=== PATIENT | male | born 1980 | race Hispanic/Latino ===

== ENCOUNTER 2017-09-16 12:37 | Emergency (ER) | payer OTHER ==
[2017-09-16] MEDS ORDERED: ASPIRIN 325 MG TABLET ONE (13:04)
[2017-09-16 13:33] LABS: CREATININE 0.8 mg/dL (0.5-1.5); POTASSIUM 3.5 mmol/L (3.5-5.1)
[2017-09-16 13:41] LABS: ALBUMIN 4.2 g/dL (3.5-5.0); BILIRUBIN,TOTAL 2.4 mg/dL (0.2-1.0); TOTAL PROTEIN, SERUM 8.8 g/dL (6.0-8.3)
[2017-09-16 13:47] LABS: INR 1.05 (0.85-1.15); PARTIAL THROMBOPLASTIN TIME 22.6 SEC (26.3-35.5)
[2017-09-16 13:49] LABS: BASOPHILS % (AUTO) 0.9 % (0.0-5.0); EOSINOPHILS % (AUTO) 0.1 % (0.0-8.0); HEMATOCRIT 38.6 % (42-54); LYMPHOCYTES % (AUTO) 23.1 % (21.0-51.0); MEAN CORPUSCULAR HEMOGLOBIN 30.5 pg (27.0-33.0); MEAN CORPUSCULAR HGB CONC 34.2 g/dL (32.0-36.0); MEAN CORPUSCULAR VOLUME 89.3 fL (79-99); MONOCYTES % (AUTO) 8.1 % (3.0-13.0); NEUTROPHILS % (AUTO) 67.8 % (40.0-77.0); PLATELET COUNT (AUTO) 264 K/uL (130-400); RED BLOOD CELL COUNT(AUTO) 4.32 MIL/uL (4.50-6.20); RED CELL DISTRIBUTION WIDTH 13.5 % (11.0-15.5); WHITE BLOOD COUNT (AUTO) 8.6 K/uL (4.8-10.8)
== END 2017-09-16 17:12 | disposition home or self-care (01) ==
LOC: EDH 12:37
DX: R07.89 Other chest pain (principal); E66.9 Obesity, unspecified; Z68.43 Body mass index [BMI] 50.0-59.9, adult
CPT/HCPCS: 36415; 71045; 76705; 80053; 82550; 84484; 85025; 85378; 85610; 85730; 93005

== ENCOUNTER 2023-01-13 17:21 | Emergency (ER) | payer OTHER ==
[~2023-01-13] VITALS: Ht 185.4 cm; Wt 222.3 kg
[2023-01-13 18:48] LABS: APPEARANCE,URINE TURBID (CLEAR); BILIRUBIN,URINE NEGATIVE (NEGATIVE); COLOR,URINE DARK-YELLOW (YELLOW); GLUCOSE, URINE (UA) NEGATIVE (NEGATIVE); KETONES,URINE NEGATIVE (NEGATIVE); LEUKOCYTE ESTERASE ,URINE 500 Leu/uL (NEGATIVE); NITRATE,URINE 1+ (NEGATIVE); OCCULT BLOOD,URINE LARGE (NEGATIVE); PROTEIN,URINE 200 mg/dL (NEGATIVE)
[2023-01-13 18:53] LABS: ADD UA MICROSCOPIC YES
[2023-01-13 18:59] LABS: BACTERIA,URINE FEW /HPF (None Seen); MUCUS,URINE RARE LPF (None Seen); RBC,URINE 26-50 /HPF (0-1); SQUAMOUS EPITHELIAL CELL,UR RARE /HPF (0-2); UNCLASSIFIED CRYSTAL 2 /HPF (None Seen); WBC CLUMP FEW /HPF (0-1); WBC,URINE >100 /HPF (0-1); YEAST,URINE BUDDING RARE /HPF (None Seen)
[2023-01-13 20:00] LABS: BASOPHILS # (AUTO) 0.04 K/uL (0.00-0.20); BASOPHILS % (AUTO) 0.5 % (0.0-5.0); EOSINOPHILS % (AUTO) 1.1 % (0.0-8.0); HEMATOCRIT 44.7 % (42-54); IMMATURE GRANULOCYTE ABSOLUTE 0.05 K/uL (0-1); LYMPHOCYTES # (AUTO) 1.6 K/uL (1.0-4.8); LYMPHOCYTES % (AUTO) 18.8 % (21.0-51.0); MEAN CORPUSCULAR HEMOGLOBIN 30.3 pg (27.0-33.0); MEAN CORPUSCULAR HGB CONC 32.4 g/dL (32.0-36.0); MEAN CORPUSCULAR VOLUME 93.3 fL (79-99); MONOCYTES # (AUTO) 0.6 K/uL (0.1-1.0); NEUTROPHILS # (AUTO) 6.3 K/uL (1.8-7.7); PLATELET COUNT (AUTO) 273 K/uL (130-400); RED BLOOD CELL COUNT(AUTO) 4.79 MIL/uL (4.50-6.20); RED CELL DISTRIBUTION WIDTH 12.9 % (11.0-15.5); WHITE BLOOD COUNT (AUTO) 8.7 K/uL (4.8-10.8)
[2023-01-13 20:14] LABS: CREATININE 0.8 mg/dL (0.5-1.5)
[2023-01-13 20:18] LABS: ALBUMIN 3.5 g/dL (3.5-5.0); TOTAL PROTEIN, SERUM 8.8 g/dL (6.0-8.3)
[2023-01-13] MEDS ORDERED: CEFTRIAXONE 1G VIAL IM ONE (20:30)
[2023-01-13] MEDS ORDERED: PHENAZOPYRIDINE HCL 200 MG TABLET PO ONE (20:30)
[2023-01-13] MEDS ORDERED: MACR100 PO (20:39)
[2023-01-13] MEDS ORDERED: PHEN-847 PO (20:39)
[2023-01-13 20:50] VITALS: BP 172/87; PULSE 88; RESP 18; O2SAT 97
== END 2023-01-13 20:53 | disposition home or self-care (01) ==
LOC: EDH 17:21
DX: N30.91 Cystitis, unspecified with hematuria (principal); R03.0 Elevated blood-pressure reading, without diagnosis of hypertension; E78.00 Pure hypercholesterolemia, unspecified; E66.01 Morbid (severe) obesity due to excess calories; Z68.44 Body mass index [BMI] 60.0-69.9, adult
CPT/HCPCS: 99283; 80053; 85025; 87077; 87088; 87186; 81001; 36415; 96372; J0696

== ENCOUNTER 2024-11-24 21:57 | Emergency (ER) | payer OTHER ==
[~2024-11-24] VITALS: Ht 185.4 cm; Wt 226.8 kg
[~2024-11-24 21:57] MED LIST: MACR100 PO; PHEN-847 PO
[2024-11-24] MEDS ORDERED: IBUP-2077 PO (22:17)
[2024-11-24] MEDS ORDERED: CIPOTIC OTIC (22:17)
--- NOTE | 2024-11-24 22:18 | ERN ---
ED Note History of Present Illness Stated Complaint: RT EAR PAIN Chief Complaint: Earache Time Seen by MD: 22:08 Dictation: PATIENT IS A 44-YEAR-OLD MALE COMING IN TODAY WITH LEFT EAR PAIN MUFFLED HEARING AND USING Q-TIPS FOR THE LAST 3-4 DAYS. NO FEVER NO CHILLS NO NAUSEA VOMITING. STATES HE IS NOT A DIABETIC. NO PRIMARY CARE DOCTOR Allergies: Coded Allergies: No Known Drug Allergies (Unverified Allergy, Unknown, 01/13/23) Home Meds Active Scripts Phenazopyridine HCl (Pyridium) 200 Mg Tab, 200 MG PO TIDPC, #10 TAB 0 Refills TAKE WITH FOOD TO PREVENT STOMACH UPSET. Prov:DEBO UP MD 01/13/23 Nitrofurantoin/Nitrofuran Mac (Macrobid) 100 Mg Cap, 1 CAP PO BID for 7 Days, #14 CAP 0 Refills Prov:DEBO UP MD 01/13/23 Past Medical History Past Medical History: No Pertinent History Surgical History: Other Surgical History Other: LEFT KNEE Social History: Negative, Lives with family RN Note Reviewed/Agreed w/PFSH: Yes Review of System Dictation CONSTITUTIONAL: NEGATIVE EXCEPT FOR HPI HEAD/FACE: NEGATIVE EXCEPT FOR HPI EENT: NEGATIVE EXCEPT FOR HPI RIGHT EAR PAIN RESPIRATORY: NEGATIVE EXCEPT FOR HPI GASTROINTESTINAL/ABDOMINAL: NEGATIVE EXCEPT FOR HPI GENITOURINARY: NEGATIVE EXCEPT FOR HPI MUSCULOSKELETAL: NEGATIVE EXCEPT FOR HPI INTEGUMENTARY: NEGATIVE EXCEPT FOR HPI NEUROLOGICAL/PSYCH: NEGATIVE EXCEPT FOR HPI HEMATOLOGIC/LYMPHATIC: NEGATIVE EXCEPT FOR HPI ALL SYSTEMS NEGATIVE, EXCEPT NOTED ABOVE. 13 POINT REVIEW OF SYSTEMS ASSESSED AND ALL NEGATIVE EXCEPT FOR ABOVE. Initial Vital Sign VS Vital Signs Date Time Temp Pulse Resp B/P (MAP) Pulse Ox O2 Delivery O2 Flow Rate FiO2 11/24/24 21:58 97.9 86 20 169/84 98 Room Air Physical Exam Dictation VITAL SIGNS REVIEWED GENERAL APPEARANCE: ALERT, ORIENTED X 3, MODERATE ACUTE DISTRESS, WELL DEVELOPED, NOURISHED. HEAD AND FACE: NON-TRAUMATIC. EYES: PERRL, PINK CONJUNCTIVAS, EYELID NO TRAUMA, ANTERIOR CHAMBER WITH ARCUS SENILIS. EARS: PINNAS INTACT AND NO SIGNS OF TRAUMA OR ERYTHEMA RIGHT OTIC CANAL WITH DRAINAGE AND ERYTHEMA SWELLING. UNABLE TO VISUALIZE TYMPANIC MEMBRANE. LEFT EAR IS NEGATIVE, NEGATIVE MASTOID TENDERNESS BILATERALLY NOSE: NO DISCHARGE, NO BLEEDING. OROPHARYNX: MOUTH NORMAL, TONGUE PINK, PHARYNX CLEAR,NO ERYTHEMA, TONSILS NO EXUDATES, NO ABSCESSES NOTED, MUCOUS MEMBRANE MOIST NECK: SUPPLE, NON-TENDER, NO THYROMEGALY, NO MASSES, NO JVD, NO BRUITS BREAST:DEFERRED CHEST:NO TENDERNESS, NO CREPITUS, NO PARADOXICAL MOVEMENT, NO RETRACTIONS LUNGS:CLEAR, WELL-VENTILATED, SYMMETRIC, NO RALES, NO WHEEZING, NO RHONCHI, NO STRIDOR, GOOD BREATH SOUNDS BILATERALLY HEART: REGULAR RATE, REGULAR RHYTHM, NO MURMUR, NO GALLOPS VASCULAR: NO PERIPHERAL EDEMA, ABDOMEN: SOFT, POSITIVE BOWEL SOUNDS, NONDISTENDED, NO GUARDING, NONTENDER, NO REBOUND, NO MASSES NO HEPATOMEGALY, NO SPLENOMEGALY, NO GAFFNEY'S SIGN, NO HERNIAS. RECTAL: DEFERRED GENITAL: DEFERRED NEUROLOGICAL: NORMAL SPEECH, MOTOR FUNCTION INTACT, SENSORY FUNCTION INTACT MUSCULOSKELETAL: NECK NONTENDER, FULL RANGE OF MOTION, BACK NONTENDER, FULL RANGE OF MOTION, EXTREMITIES: NONTENDER, FULL RANGE OF MOTION SKIN: COLOR PINK, DRY, NO TURGOR, NO RASH, NO LACERATIONS, NO ABRASIONS, NO CONTUSIONS. LYMPHATIC: DEFERRED Results (Laboratory/Radiology) Labs Reviewed?: Yes ED Course ED Course Orders Procedure Category Date Status Time Ibuprofen 800 Mg Tab PHA 11/24/24 Transmitted (Motrin) 22:30 Vital Signs Date Time Temp Pulse Resp B/P (MAP) Pulse Ox O2 Delivery O2 Flow Rate FiO2 11/24/24 21:58 97.9 86 20 169/84 98 Room Air 2215/PATIENT WAS INSTRUCTED TO STOP USING Q-TIPS IN EARS. HE WILL BE PRESCRIBED CIPRO HC WITH THE INSTRUCTIONS GIVEN LIST OF DOCTORS ON STAFF TO SEE IN THE NEXT 2-3 DAYS IF NOT IMPROVED. Medical Decision Making MDM MEDICAL DECISION-MAKING BASED ON PHYSICAL EXAMINATION AND EMPIRIC TREATMENT FOR OTITIS EXTERNA PATIENT WAS STRONGLY ADVISED TO STOP USING Q-TIPS IN EARS GIVEN IBUPROFEN FOR PAIN DISCHARGED HOME WITH CIPRO HC AND IBUPROFEN GIVEN A LIST OF LOCAL DOCTORS ON STAFF TO FOLLOW UP NEXT WEEK. DX & DISP Disposition: Discharge Departure Impression: Primary Impression: Acute contact otitis externa of right ear Condition: Stable Scripts Ibuprofen (Ibuprofen 800 mg Tab) 800 Mg Tab 800 MG PO Q8H PRN for fever or pain, #30 TAB 0 Refills Prov: AUGUSTINE GUERRIER BUSINESS REPRESENTATIVE 11/24/24 Ciprofloxacin HCl/Hc (Cipro Hc Otic Susp) 0.2 %-1 % Otsus 4 DROP OTIC BID for 7 Days, #10 ML 0 Refills FOUR DROPS RIGHT EAR WITH COTTON TWICE A DAY FOR SEVEN DAYS. Prov: AUGUSTINE GUERRIER NP 11/24/24 Additional Instructions: FOLLOW-UP WITH PRIMARY CARE PROVIDER IN 1 TO 2 DAYS. TAKE MEDICATIONS DIRECTED HERE IN THE EMERGENCY ROOM. OKAY TO CONTINUE HOME MEDICATIONS UNLESS OTHERWISE DISCUSSED DURING YOUR VISIT IN THE EMERGENCY ROOM TODAY. RETURN TO YOUR NEAREST EMERGENCY ROOM IF SYMPTOMS WORSEN OR IF THERE IS NO IMPROVEMENT. CALL 911 IF YOU NEED IMMEDIATE ASSISTANCE. TAKE TYLENOL OR MOTRIN [id number] NEEDED AND IF NO CONTRAINDICATIONS ARE PRESENT. INCREASE ORAL HYDRATION. A WOUND CULTURE OR URINE CULTURE WAS ORDERED HERE IN THE EMERGENCY ROOM DEPARTMENT PLEASE FOLLOW-UP WITH PRIMARY CARE PROVIDER AND ADVISE THEM TO GET REPEAT PORTS FROM OUR FACILITY. IF YOU HAD ANY BONNIE WRAP/SPLINTS THAT WERE APPLIED HERE, PLEASE DO NOT REMOVE THEM UNTIL YOU SEE YOUR PRIMARY CARE OR SPECIALTY. NO Q-TIPS IN EARS. USE CIPRO DROPS TO RIGHT EAR WITH COTTON BALLS TWICE A DAY FOR SEVEN DAYS DIRECTED. TAKE IBUPROFEN NEEDED FOR PAIN. FOLLOW UP WITH ONE OF THE DOCTORS ON THE LIST PROVIDED YOU IN THE NEXT 2-3 DAYS FOR REFERRAL TO ENT IF NOT BETTER. Referrals: ZEN CAMPBELL (PCP) Time of Disposition: 22:16 I have reviewed the case, and I agree with, Diagnosis and Plan AUGUSTINE GUERRIER NP Nov 24, 2024 22:18
[2024-11-24 22:26] VITALS: BP 159/80; PULSE 83; RESP 18; TEMP 98.2; O2SAT 99
== END 2024-11-24 22:26 | disposition home or self-care (01) ==
LOC: EDH 21:57
DX: H60.91 Unspecified otitis externa, right ear (principal)
CPT/HCPCS: 99283

== ENCOUNTER 2025-03-02 10:38 | Emergency (ER) | payer OTHER ==
[~2025-03-02] VITALS: Ht 185.4 cm; Wt 226.8 kg
[~2025-03-02 10:38] MED LIST changes: +CIPOTIC OTIC; +IBUP-2077 PO
--- NOTE | 2025-03-02 11:14 | ERN ---
ED Note History of Present Illness Stated Complaint: RT LEG WOUND AND SWELLING Chief Complaint: Lower Extremity Pain/Injury Time Seen by MD: 11:05 Dictation: PATIENT IS A 44-YEAR-OLD MALE HERE WITH HIS WITH COMPLAINTS OF A CHRONIC ULCER TO THE POSTERIOR RIGHT CALF HE HAS HAD FOR SEVERAL WEEKS ON-CALL. HE HAS HAD NO FEVER NO CHILLS NO NAUSEA VOMITING. NO PRIMARY CARE DOCTOR. HE IS NOTED TO HAVE DISCOLORATION OF BILATERAL LOWER EXTREMITIES IN HIS MORBIDLY OBESE. HE STATES HE SAW A DOCTOR TWO YEARS AGO AND THE DOCTOR DID NOT STATE ANY HAD NEED ANY CHRONIC COMORBIDITIES. DISTAL NEUROVASCULAR CMS INTACT Allergies: Coded Allergies: No Known Drug Allergies (Unverified Allergy, Unknown, 01/13/23) Home Meds Active Scripts Ibuprofen (Ibuprofen 800 mg Tab) 800 Mg Tab, 800 MG PO Q8H PRN for fever or pain, #30 TAB 0 Refills Prov:AUGUSTINE GUERRIER RETOUCHER PHOTOENGRAVING 11/24/24 Ciprofloxacin HCl/Hc (Cipro Hc Otic Susp) 0.2 %-1 % Otsus, 4 DROP OTIC BID for 7 Days, #10 ML 0 Refills FOUR DROPS RIGHT EAR WITH COTTON TWICE A DAY FOR SEVEN DAYS. Prov:AUGUSTINE GUERRIERP 11/24/24 Phenazopyridine HCl (Pyridium) 200 Mg Tab, 200 MG PO TIDPC, #10 TAB 0 Refills TAKE WITH FOOD TO PREVENT STOMACH UPSET. Prov:DEBO UP MD 01/13/23 Nitrofurantoin/Nitrofuran Mac (Macrobid) 100 Mg Cap, 1 CAP PO BID for 7 Days, #14 CAP 0 Refills Prov:DEBO UP MD 01/13/23 Past Medical History Past Medical History: No Pertinent History Surgical History: Other Surgical History Other: LEFT KNEE Social History: Negative, Lives with family RN Note Reviewed/Agreed w/PFSH: Yes Review of System Dictation CONSTITUTIONAL: NEGATIVE EXCEPT FOR HPI HEAD/FACE: NEGATIVE EXCEPT FOR HPI EENT: NEGATIVE EXCEPT FOR HPI RESPIRATORY: NEGATIVE EXCEPT FOR HPI GASTROINTESTINAL/ABDOMINAL: NEGATIVE EXCEPT FOR HPI GENITOURINARY: NEGATIVE EXCEPT FOR HPI MUSCULOSKELETAL: NEGATIVE EXCEPT FOR HPI CHRONIC SKIN CHANGES BILATERAL LOWER EXTREMITIES. EARLY STAGE II ULCER POSTERIOR LEFT CALF. INTEGUMENTARY: NEGATIVE EXCEPT FOR HPI NEUROLOGICAL/PSYCH: NEGATIVE EXCEPT FOR HPI HEMATOLOGIC/LYMPHATIC: NEGATIVE EXCEPT FOR HPI ALL SYSTEMS NEGATIVE, EXCEPT NOTED ABOVE. 13 POINT REVIEW OF SYSTEMS ASSESSED AND ALL NEGATIVE EXCEPT FOR ABOVE. Initial Vital Sign VS Vital Signs Date Time Temp Pulse Resp B/P (MAP) Pulse Ox O2 Delivery O2 Flow Rate FiO2 03/02/25 10:40 98.6 85 20 163/92 99 Room Air 03/02/25 11:00 0 21 Physical Exam Dictation VITAL SIGNS REVIEWED GENERAL APPEARANCE: ALERT, ORIENTED X 3, NO ACUTE DISTRESS, WELL DEVELOPED, NOURISHED. MORBIDLY OBESE 0/10 PAIN HEAD AND FACE: NON-TRAUMATIC. EYES: PERRL, PINK CONJUNCTIVAS, EYELID NO TRAUMA, ANTERIOR CHAMBER WITH ARCUS SENILIS. EARS: PINNAS INTACT AND NO SIGNS OF TRAUMA OR ERYTHEMA EAR CANALS CLEAR AND NO DISCHARGE TM NO ERYTHEMA NOSE: NO DISCHARGE, NO BLEEDING. OROPHARYNX: MOUTH NORMAL, TONGUE PINK, PHARYNX CLEAR,NO ERYTHEMA, TONSILS NO EXUDATES, NO ABSCESSES NOTED, MUCOUS MEMBRANE MOIST NECK: SUPPLE, NON-TENDER, NO THYROMEGALY, NO MASSES, NO JVD, NO BRUITS BREAST:DEFERRED CHEST:NO TENDERNESS, NO CREPITUS, NO PARADOXICAL MOVEMENT, NO RETRACTIONS LUNGS:CLEAR, WELL-VENTILATED, SYMMETRIC, NO RALES, NO WHEEZING, NO RHONCHI, NO STRIDOR, GOOD BREATH SOUNDS BILATERALLY HEART: REGULAR RATE, REGULAR RHYTHM, NO MURMUR, NO GALLOPS VASCULAR: NO PERIPHERAL EDEMA, ABDOMEN: SOFT, POSITIVE BOWEL SOUNDS, NONDISTENDED, NO GUARDING, NONTENDER, NO REBOUND, NO MASSES NO HEPATOMEGALY, NO SPLENOMEGALY, NO GAFFNEY'S SIGN, NO HERNIAS. RECTAL: DEFERRED GENITAL: DEFERRED NEUROLOGICAL: NORMAL SPEECH, MOTOR FUNCTION INTACT, SENSORY FUNCTION INTACT MUSCULOSKELETAL: NECK NONTENDER, FULL RANGE OF MOTION, BACK NONTENDER, FULL RANGE OF MOTION, EXTREMITIES: DIFFUSE DISCOLORATION TO BILATERAL LOWER EXTREMITIES FROM MIDCALF DOWN TO ANKLE. CONSISTENT WITH BASILAR INSUFFICIENCY STAGE II BREAK DOWN TO POSTERIOR RIGHT CALF. DISTAL NEUROVASCULAR CMS INTACT BOTH LOWER EXTREMITIES LYMPHATIC: DEFERRED Results (Laboratory/Radiology) Laboratory/Radiology Laboratory Tests Test 03/02/25 11:53 White Blood Count 7.3 K/uL (4.8-10.8) Red Blood Count 4.61 MIL/uL (4.50-6.20) Hemoglobin 13.7 g/dL (14.0-18.0) L Hematocrit 42.2 % (42-54) Mean Corpuscular Volume 91.5 fL (79-99) Mean Corpuscular Hemoglobin 29.7 pg (27.0-33.0) Mean Corpuscular Hemoglobin Concent 32.5 g/dL (32.0-36.0) Red Cell Distribution Width 13.2 % (11.0-15.5) Platelet Count 267 K/uL (130-400) Mean Platelet Volume 9.2 fL (7.5-10.5) Immature Granulocyte % (Auto) 0.5 % (0-1) Neutrophils (%) (Auto) 62.0 % (40.0-77.0) Lymphocytes (%) (Auto) 25.8 % (21.0-51.0) Monocytes (%) (Auto) 9.1 % (3.0-13.0) Eosinophils (%) (Auto) 1.6 % (0.0-8.0) Basophils (%) (Auto) 1.0 % (0.0-5.0) Neutrophils # (Auto) 4.5 K/uL (1.8-7.7) Lymphocytes # (Auto) 1.9 K/uL (1.0-4.8) Monocytes # (Auto) 0.7 K/uL (0.1-1.0) Eosinophils # (Auto) 0.12 K/uL (0.00-0.70) Basophils # (Auto) 0.07 K/uL (0.00-0.20) Absolute Immature Granulocyte (auto 0.04 K/uL (0-1) Nucleated Red Blood Cells 0.0 % (0.0-0.19) Sodium Level 139 mmol/L (136-145) Potassium Level 3.6 mmol/L (3.5-5.1) Chloride Level 104 mmol/L (101-111) Carbon Dioxide Level 30 mmol/L (21-32) Blood Urea Nitrogen 12 mg/dL (7-18) Creatinine 0.9 mg/dL (0.5-1.3) Glomerular Filtration Rate Calc 109 mL/min (>90) Random Glucose 113 mg/dL (70-105) H Lactic Acid Level 1.5 mmol/L (0.8-2.5) Total Calcium 8.6 mg/dL (8.5-10.1) 1158/NEGATIVE DVT RIGHT LEG Labs Reviewed?: Yes ED Course ED Course Orders Procedure Category Date Status Time Blood Cult KUSH 03/02/25 In Process 11:11 Lactic Acid LAB 03/02/25 Complete 11:11 Us Venous Doppler US 03/02/25 Resulted Unilateral 11:11 Cbc With Differential LAB 03/02/25 Complete 11:11 Basic Metabolic Panel LAB 03/02/25 Complete 11:11 Clindamycin 150mg Cap PHA 03/02/25 Complete (Cleocin 150mg Cap 13:00 Current Medications Medications (Trade) Dose Ordered Sig/Ailyn Route PRN Reason Start Time Stop Time Status Last Admin Dose Admin Clindamycin HCl (Cleocin 150mg Cap) 600 mg ONCE ONCE PO 03/02/25 13:00 03/02/25 13:01 DC 03/02/25 13:03 Vital Signs Date Time Temp Pulse Resp B/P (MAP) Pulse Ox O2 Delivery O2 Flow Rate FiO2 03/02/25 11:00 98.6 85 20 163/92 99 Room Air* 0 21 03/02/25 10:40 98.6 85 20 163/92 99 Room Air 1305/PATIENT IS HEMODYNAMICALLY STABLE AND HYPERTENSIVE. NO DEMONSTRATED DVT ON ULTRASOUND AND NO ELEVATED WHITE COUNT DISCHARGED HOME WITH CHRONIC STASIS ULCER AND HYPERTENSION WITH MORBID OBESITY WE WILL BE REFERRED TO PRIMARY CARE DOCTOR AND TO DR. ARAUJO, GEOTECHNICIAL PROPERTIES TECHNICIAN Medical Decision Making MDM MDM: DIFFERENTIAL DIAGNOSIS: DVT/CELLULITIS/ELECTROLYTE IMBALANCE/DEHYDRATION RATIONALE: TESTS CONSIDERED AND ORDERED SECONDARY TO SHARED DECISION MAKING INCLUDE: LABS/RADIOLOGY PREVIOUS OUTSIDE RECORDS REVIEWED: OLD ER VISITS. RISK OF COMPLICATION AND/OR MORBIDITY OR MORTALITY OF PATIENT MANAGEMENT: NONE MEDICATIONS-PER MEDICATION RECONCILIATION NEED FOR HOSPITALIZATION: PATIENT DOES NOT MEET CRITERIA FOR HOSPITALIZATION. NONE NEED FOR EMERGENCY MAJOR/MINOR SURGERY: NO THERE ARE NO SOCIAL CONCERNS WITH THIS PATIENT. PRESCRIPTION DRUG MANAGEMENT CLINDAMYCIN/ENALAPRIL PRESCRIPTIONS WILL INCLUDE SYMPTOMATIC CARE PATIENT'S PRIOR EXTERNAL MEDICAL RECORDS FROM OTHER ER VISITS WERE REVIEWED BY ME INDICATED. PRIOR TESTING AND RESULTS FROM PREVIOUS VISITS WERE REVIEWED. PRIOR TESTS WERE TAKEN INTO ACCOUNT WITH MEDICAL DECISION MAKING AND RESOURCE UTILIZATION, INDEPENDENT HISTORIAN/HISTORIANS WERE USED TO OBTAIN COMPLETE M EDICAL HISTORY. I INDEPENDENTLY INTERPRETED THE TEST THAT WERE PERFORMED, RESULTS WERE REVIEWED BY ME AND CONSIDERED FINDINGS ON RADIOLOGY IF ORDERED. MEDICAL MANAGEMENT AND EXAMINATION INTERPRETATION DISCUSSIONS WERE HAD BY ME WITH OTHER QUALIFIED HEALTHCARE PROFESSIONALS INDICATED FOR THE PATIENT'S CARE. DX & DISP Disposition: Discharge Departure Impression: Primary Impression: Chronic cutaneous venous stasis ulcer Additional Impressions: Hypertension, Morbid obesity Condition: Stable Scripts Enalapril Maleate (Enalapril Maleate) 10 Mg Tablet 1 TAB PO DAILY for 30 Days, #30 TAB 0 Refills Prov: AUGUSTINE GUERRIER RETOUCHER PHOTOENGRAVING 03/02/25 Mupirocin (Bactroban 2% Oint) 2 % Oint 1 APPL TP TID for 5 Days, #15 GM 0 Refills apply to affected area(s) Prov: AUGUSTINE GUERRIER RETOUCHER PHOTOENGRAVING 03/02/25 Clindamycin HCl (Clindamycin HCl) 300 Mg Capsule 1 CAP PO QID for 10 Days, #40 CAP 0 Refills Prov: AUGUSTINE GUERRIER RETOUCHER PHOTOENGRAVING 03/02/25 Additional Instructions: FOLLOW-UP WITH PRIMARY CARE PROVIDER IN 1 TO 2 DAYS. TAKE MEDICATIONS DIRECTED HERE IN THE EMERGENCY ROOM. OKAY TO CONTINUE HOME MEDICATIONS UNLESS OTHERWISE DISCUSSED DURING YOUR VISIT IN THE EMERGENCY ROOM TODAY. RETURN TO YOUR NEAREST EMERGENCY ROOM IF SYMPTOMS WORSEN OR IF THERE IS NO IMPROVEMENT. CALL 911 IF YOU NEED IMMEDIATE ASSISTANCE. TAKE TYLENOL OR MOTRIN [id number] NEEDED AND IF NO CONTRAINDICATIONS ARE PRESENT. INCREASE ORAL HYDRATION. A WOUND CULTURE OR URINE CULTURE WAS ORDERED HERE IN THE EMERGENCY ROOM DEPARTMENT PLEASE FOLLOW-UP WITH PRIMARY CARE PROVIDER AND ADVISE THEM TO GET REPEAT PORTS FROM OUR FACILITY. IF YOU HAD ANY BONNIE WRAP/SPLINTS THAT WERE APPLIED HERE, PLEASE DO NOT REMOVE THEM UNTIL YOU SEE YOUR PRIMARY CARE OR SPECIALTY. WASH ULCER TO RIGHT LEG WITH SOAP AND WATER AND DRY THOROUGHLY. APPLY BACTROBAN WITH DRY DRESSING3 TIMES A DAY FOR FIVE DAYS. TAKE ANTIBIOTICS DIRECTED UNTIL GONE. TAKE ENALAPRIL DIRECTED DAILY FOR YOUR BLOOD PRESSURE AND FOLLOW UP WITH ONE OF THE PRIMARY CARE DOCTORS ON THE LIST PROVIDED YOU FOR MANAGEMENT CALL DR. ARAUJO, GEOTECHNICIAL PROPERTIES TECHNICIAN IN THE NEXT 1-2 DAYS FOR MANAGEMENT OF YOUR RIGHT LEG ULCER. KEEP YOUR RIGHT LEG ELEVATED MUCH POSSIBLE Referrals: NONE (PCP) HARESH ARAUJO MD Time of Disposition: 13:07 I have reviewed the case, and I agree with, Diagnosis and Plan AUGUSTINE GUERRIER RETOUCHER PHOTOENGRAVING Mar 02, 2025 11:13
--- NOTE | 2025-03-02 11:18 | NUR ---
US AT BEDSIDE
--- NOTE | 2025-03-02 12:00 | HMCIMG ---
EXAM: US for Deep Venous Thrombosis, right Lower Extremity. CLINICAL HISTORY: Leg Pain and Swelling TECHNIQUE: Real-time ultrasound scan of the veins of the right lower extremity with color Doppler flow, spectral waveform analysis and compression. COMPARISON: None provided. FINDINGS: DEEP VEINS: The common femoral, superficial femoral, and popliteal veins are echolucent and compressible. There is normal color Doppler flow throughout. The posterior tibial vein was not adequately visualized for characterization. SOFT TISSUES: No popliteal fossa cyst or other abnormalities. IMPRESSION: No deep venous thrombosis evident on the right lower extremity examination. /Jamee
[2025-03-02 12:05] LABS: IMMATURE GRANULOCYTE ABSOLUTE 0.04 K/uL (0-1); NUCLEATED RED BLOOD CELLS 0.0 % (0.0-0.19); PLATELET COUNT (AUTO) 267 K/uL (130-400); RED BLOOD CELL COUNT(AUTO) 4.61 MIL/uL (4.50-6.20); RED CELL DISTRIBUTION WIDTH 13.2 % (11.0-15.5); WHITE BLOOD COUNT (AUTO) 7.3 K/uL (4.8-10.8)
[2025-03-02 12:25] LABS: CREATININE 0.9 mg/dL (0.5-1.3); GLOMERULAR FILTR. RATE CALC 109.0 mL/min (>90); GLUCOSE,RANDOM 113.0 mg/dL (70-105); SODIUM SERUM 139.0 mmol/L (136-145); UREA NITROGEN, BLOOD 12.0 mg/dL (7-18)
[2025-03-02] MEDS: CLINDAMYCIN 150 MG CAP PO ONE (13:03)
[2025-03-02 13:05] VITALS: BP 147/75; PULSE 75; RESP 18; TEMP 98.6; O2SAT 99
[2025-03-02] MEDS ORDERED: CLIN-141 PO (13:08)
[2025-03-02] MEDS ORDERED: MUPI22O TP (13:08)
[2025-03-02] MEDS ORDERED: ENAL-89 PO (13:08)
== END 2025-03-02 13:32 | disposition home or self-care (01) ==
LOC: EDH 10:38
DX: I83.012 Varicose veins of right lower extremity with ulcer of calf (principal); L97.219 Non-pressure chronic ulcer of right calf with unspecified severity; E66.01 Morbid (severe) obesity due to excess calories; I10 Essential (primary) hypertension; Z68.44 Body mass index [BMI] 60.0-69.9, adult
CPT/HCPCS: 36415; 80048; 83605; 85025; 87040; 93971; 99284